=== PATIENT | male | born 2005 | race Caucasian/White ===

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

== ENCOUNTER 2025-05-11 09:01 | Emergency (ER) | payer OTHER, SELFPAY ==
[2025-05-11 09:02] VITALS: BP 162/87; PULSE 91; RESP 18; TEMP 36; O2SAT 100; BMI 25.2
[2025-05-11 09:23] VITALS: O2SAT 100
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
--- NOTE | 2025-05-11 09:35 | RAD_ITS ---
EXAM: Left tibia and fibula CLINICAL HISTORY: Wound above medial male COMPARISON: None TECHNIQUE: Four views of the left tibia and fibula FINDINGS: There is no fracture or dislocation. There is soft tissue swelling visible in the distal 3rd of the calf above the level of the medial malleolus with no visible radiopaque foreign body or soft tissue air. Mineralization is normal. There is no visible atherosclerosis. RAD/Tibia & Fibula 2 Views IMPRESSION: There is soft tissue swelling visible in the distal 3rd of the calf above the l evel of the medial malleolus with no visible radiopaque foreign body or soft tissue air. Reading Location: [facility]
--- NOTE | 2025-05-11 09:35 | RAD_ITS ---
EXAM: Left tibia and fibula CLINICAL HISTORY: Wound above medial male COMPARISON: None TECHNIQUE: Four views of the left tibia and fibula FINDINGS: There is no fracture or dislocation. There is soft tissue swelling visible in the distal 3rd of the calf above the level of the medial malleolus with no visible radiopaque foreign body or soft tissue air. Mineralization is normal. There is no visible atherosclerosis. RAD/Tibia & Fibula 2 Views IMPRESSION: There is soft tissue swelling visible in the distal 3rd of the calf above the l evel of the medial malleolus with no visible radiopaque foreign body or soft tissue air. Reading Location: [facility]
[2025-05-11] MEDS: 0.9% Normal Saline (1000mL) 1,000 ML 999 ML IV ×2 (09:55→12:17)
[2025-05-11 10:04] LABS: Hematocrit 44.7 % (40-54); Hemoglobin 14.9 g/dL (13.0-16.5); Immature Granulocytes Count 0.040 X10^3/uL (0.0-0.0); Mean Corp Hgb Conc 33.3 g/dL (32-36); Mean Corpuscular Volume 86.8 fL (80-94); Mean Platelet Vol. 10.1 fl (6.2-12.0); NRBC Flagged by Analyzer 0 % (0-5); Platelet Count 261 K/mm3 (150-450); RBC Distribution Width CV 13.2 % (11.6-14.6); RBC Distribution Width SD 41.1 fl (35.1-43.9); Red Blood Count 5.15 M/mm3 (4.6-6.2); White Blood Count 9.5 K/mm3 (4.4-11.0)
[2025-05-11 10:29] LABS: Prothrombin Time (Protime)PT. 14.2 SECONDS (11.7-14.9)
[2025-05-11 10:30] LABS: AST(SGOT) 18 U/L (<=37); Alanine Aminotransfer ALT/SGPT 18 U/L (<=46); Albumin, Serum 5.1 g/dL (3.5-5.0); Alkaline Phosphatase 74 U/L (40-129); Anion Gap 12 (5-15); BUN 11 mg/dL (4-19); BUN/Creat Ratio 14.8 RATIO (10-20); Calcium,Total 10.0 mg/dL (7.6-11.0); Carbon Dioxide 28.3 mmol/L (21.0-32.0); Chloride 101 mmol/L (98-108); Estimated Creatinine Clearance 174.38 ml/min (50-250); Globulin 2.6 g/dL (2.2-4.2); Glucose 89 mg/dL (70-99); Partial Thromboplast Time 32.4 Seconds (24.1-36.2); Potassium 4.0 mmol/L (3.3-5.1)
[2025-05-11] MEDS: Vancomycin HCl 1,250 MG in 0.9% Normal Saline (250mL Bag) 250 ML 250 MG IV (11:10)
[2025-05-11 11:25] LABS: Mucous, Urine 0 SEEN /hpf (<or=2+); Red Blood Cells-Urine 0 SEEN /hpf (0-5); Squamous Epithelial Cells - UA 0 SEEN /hpf (0-5)
[2025-05-11 11:28] LABS: Color, Urine Yellow (Yellow); Glucose, Dipstick Normal (Normal); Ketone-Dipstick Negative (Negative); Leukocyte Esterase-Dipstick Negative /ul (Negative); Nitrite-Dipstick Negative (Negative); Occult Blood-Urine Negative /ul (Negative); Protein-Dipstick Negative (Negative); Specific Gravity, Urine 1.010 (1.002-1.030); Urine Bilirubin Dipstick Negative (Negative)
[2025-05-11] MEDS: DiphenhydrAMINE 50 MG/ML Syringe 25 MG IV (12:17)
--- NOTE | 2025-05-11 12:21 | NURSING ---
pt mom called out saying pt getting flushed and face red and c/o itching to top of headand neck area. iv vancomycin stoppped and aware ordering iv antihistamine. vs stable.
[2025-05-11 12:24] VITALS: BP 135/81; PULSE 73; RESP 16; TEMP 37.1; O2SAT 100
[2025-05-11 13:59] LABS: Reflex Lactate? Y
[2025-05-11] MEDS: Lidocaine 1% (20 ml mdv) 20 ML Vial 10 ML INFILT (15:22)
[2025-05-11 15:51] VITALS: BP 143/67; PULSE 74; RESP 16; TEMP 36.9; O2SAT 99
== END 2025-05-11 15:52 | disposition home or self-care (01) ==
PROVIDERS: Emergency Provider Emergency Medicine; Visit Provider Emergency Medicine
DX: S80.12XA Contusion of left lower leg, initial encounter (principal); V18.4XXA Pedal cycle driver injured in noncollision transport accident in traffic accident, initial encounter; L03.116 Cellulitis of left lower limb
CPT/HCPCS: 10140; 73590; 80053; 81001; 83605; 85025; 85610; 85730; 87040; 87086; 93005; 96365; 96375; 99284; A4216